=== PATIENT | female | born 1990 | race Two or more races ===

== ENCOUNTER 2022-09-03 06:30 | Inpatient (IN) ==
[2022-09-03] MEDS ORDERED: D5 LR + PITOCIN 10 UNITS/L 10 UNITS/1,000 ML BAG IV PRN (06:37)
[2022-09-03] MEDS ORDERED: PITOCIN IVP ONE (06:37)
[2022-09-03] MEDS ORDERED: REGLAN INJ 10 MG VIAL IVP PRN (06:37)
[2022-09-03] MEDS ORDERED: STADOL INJ IVP PRN (06:41)
[2022-09-03] MEDS ORDERED: D5 1/2 NS 1,000 ML 1,000 ML IV SCH (07:00)
[2022-09-03] MEDS ORDERED: BETADINE SOLN ONE (07:10)
[2022-09-03] MEDS ORDERED: D5 1/2 NS 1,000 mL + PITOCIN 20 UNITS/L IV 20 UNITS/1,000 ML BAG IV ONE (07:11)
[2022-09-03 07:46] LABS: BILIRUBIN,URINE NEGATIVE (NEGATIVE); BLOOD/HEMOGLOBIN,URINE NEGATIVE (NEGATIVE); GLUCOSE, URINE NEGATIVE (NEGATIVE); KETONES,URINE NEGATIVE (NEGATIVE); LEUKOCYTE ESTERASE ,URINE 1+ (NEGATIVE); NITRITES,URINE NEGATIVE (NEGATIVE); PROTEIN,URINE 1+ (NEGATIVE); UROBILINOGEN,URINE NORMAL (NORMAL)
[2022-09-03 07:47] LABS: BASOPHILS % (AUTO) 0.3 % (0.2-1.0); EOSINOPHILS % (AUTO) 0.4 % (0.9-2.9); HEMATOCRIT 29.3 % (36.0-47.0); LYMPHOCYTES # (AUTO) 2.1 X10^3/uL (1.3-2.9); MEAN CORPUSCULAR HEMOGLOBIN 28.6 pg (27.0-34.0); MEAN PLATELET VOLUME 8.5 fL (7.4-11.0); MONOCYTES # (AUTO) 0.7 x10^3/uL (0.3-0.8); MONOCYTES % (AUTO) 8.2 % (0.0-13.0); NEUTROPHILS # (AUTO) 5.4 x10^3/uL (2.2-4.8); NEUTROPHILS % (AUTO) 66.1 % (42.0-75.0); RED BLOOD COUNT 3.49 X10^6/uL (3.5-5.4); RED CELL DISTRIBUTION WIDTH 12.9 % (11.6-16.5); WHITE BLOOD COUNT 8.2 X10^3/uL (3.6-10.0)
[2022-09-03 07:53] LABS: APPEARANCE,URINE SLIGHTLY HAZY (CLEAR); BACTERIA,URINE 2+ /HPF (NEGATIVE); COLOR,URINE YELLOW (YELLOW); RBC,URINE NONE SEEN /HPF (0-3); SQUAMOUS EPITHELIAL CELL,UR FEW /HPF (NEGATIVE)
[2022-09-03 07:59] LABS: ALANINE AMINOTRANSFERASE 13 Units/L (12-78); ALBUMIN 2.5 g/dL (3.4-5.0); ALKALINE PHOSPHATASE 102 Units/L (46-116); ASPARTATE AMINO TRANSFERASE 18 Units/L (15-37); BLOOD UREA NITROGEN 8 mg/dL (7-18); CALCIUM 8.5 mg/dL (8.5-10.1); CARBON DIOXIDE 22.4 mmol/L (21-32); CHLORIDE 103 mmol/L (98-107); COR CA(FOR HYPOALB) 9.7 mg/dL (8.5-10.1); CREATININE 0.59 mg/dL (0.55-1.02); SODIUM 136 mmol/L (136-145); TOTAL PROTEIN 6.9 g/dL (6.4-8.2); eGFR NON BLACK RACES > 60 (>60)
[2022-09-03] MEDS ORDERED: STADOL INJ ONE (09:00)
[2022-09-03] MEDS ORDERED: ZOFRAN INJ 4 MG VIAL ONE (11:41)
[2022-09-03] MEDS ORDERED: MOTRIN TAB 800 MG PO PRN (12:26)
[2022-09-03] MEDS ORDERED: D5 1/2 NS 1,000 ML 1,000 ML with PITOCIN 20 UNITS IV SCH ×2 (13:00)
[2022-09-03] MEDS ORDERED: MILK OF MAGNESIA PO PRN (13:02)
[2022-09-03] MEDS ORDERED: AMBIEN PO PRN (13:02)
[2022-09-03] MEDS ORDERED: DERMOPLAST PAIN RELIEF SPRAY TOP PRN (13:02)
[2022-09-03] MEDS: MOTRIN TAB 800 MG PO PRN (16:02)
[2022-09-04 05:10] LABS: HEMATOCRIT 28.1 % (36.0-47.0); HEMOGLOBIN 9.6 g/dL (12.0-16.0)
[2022-09-04] MEDS: MOTRIN TAB 800 MG PO PRN (07:30)
[2022-09-04] MEDS ORDERED: POTASSIUM CHL 40 MEQ/NS 0.45% 500 ML IV PRN (07:31)
[2022-09-04] MEDS ORDERED: K-DUR TAB 20 MEQ PO PRN (07:31)
[2022-09-04] MEDS ORDERED: K-RIDER 10 MEQ/NS 100 ML 10 MEQ/100 ML BAG IV PRN (07:31)
[2022-09-04] MEDS ORDERED: KLOR-CON PO PRN (07:31)
[2022-09-04] MEDS ORDERED: POTASSIUM CHL 60 MEQ/NS 0.45% 500 ML IV PRN (07:31)
[2022-09-04] MEDS ORDERED: MICRO K EXTEN CAP 10 MEQ PO PRN (07:31)
[2022-09-04] MEDS ORDERED: POTASSIUM CHLORIDE LIQ 20 MEQ UDC PO PRN (07:31)
[2022-09-04] MEDS ORDERED: PRENATAL PLUS PO SCH (09:00)
[2022-09-04 13:15] VITALS: BP 118/72
== END 2022-09-04 14:50 | disposition home or self-care (01) | DRG 807 ==
LOC: LD 06:30 → MED/SURG 13:02
PROVIDERS: ADMIT Obstetrics & Gynecology Obstetrics; ATTEND Obstetrics & Gynecology Obstetrics
DX: Z3A.41 41 weeks gestation of pregnancy; O71.82 Other specified trauma to perineum and vulva; Z37.0 Single live birth; O26.893 Other specified pregnancy related conditions, third trimester